=== PATIENT | female | born 1965 | race African-American/Black ===

== ENCOUNTER 2016-12-03 11:38 | Inpatient (IN) | payer OTHER ==
[2016-12-03 13:02] VITALS: BMI 36.0
--- NOTE | 2016-12-03 16:12 | HP ---
CIWA Score - CIWA Score Nausea/Vomitin Muscle Tremors: 4-Moderate,w/Arms Extend Anxiety: 4-Mod. Anxious/Guarded Agitation: 4-Moderately Restless Paroxysmal Sweats: 3 Orientation: 0-Oriented Tacttile Disturbances: 0-None Auditory Disturbances: 0-None Visual Disturbances: 0-None Headache: 0-None Present CIWA-Ar Total Score: 18 Admission ROS BHS - HPI Chief Complaint: Withdrawal sx. Allergies/Adverse Reactions: Allergies Allergy/AdvReac Type Severity Reaction Status Date / Time No Known Allergies Allergy Verified 12/03/16 14:59 History of Present Illness: 51 y/o woman with a long hx. of alcoholism is admitted for detox.Pt. denies previous detox,denies sobriety. Exam Limitations: No Limitations - Ebola screening Have you traveled outside of the country in the last 21 days: No Have you had contact with anyone from an Ebola affected area: No Have you been sick,other than usual withdrawal symptoms: No - Review of Systems Constitutional: Diaphoresis EENT: reports: No Symptoms Reported Respiratory: reports: No Symptoms reported Cardiac: reports: No Symptoms Reported GI: reports: Nausea, Abdominal cramping : reports: No Symptoms Reported Musculoskeletal: reports: Other (pain 1st toe rt. foot) Integumentary: reports: Sweating Neuro: reports: Tremors Endocrine: reports: No Symptoms Reported Hematology: reports: No Symptoms Reported Psychiatric: reports: No Sypmtoms Reported Other Systems: Reviewed and Negative Patient History - Patient Medical History Hx Anemia: No Hx Asthma: No Hx Chronic Obstructive Pulmonary Disease (COPD): No Hx Cancer: No Hx Cardiac Disorders: No Hx Congestive Heart Failure: No Hx Hypertension: No Hx Hypercholesterolemia: No Hx Pacemaker: No HX Cerebrovascular Accident: No Hx Seizures: No Hx Dementia: No Hx Diabetes: No Hx Gastrointestinal Disorders: Yes (Dyspepsia) Hx Liver Disease: No Hx Genitourinary Disorders: No Hx Sexually Transmitted Disorders: Yes (Chkamydia many years ago) Hx Renal Disease (ESRD): No Hx Thyroid Disease: No Hx Human Immunodeficiency Virus (HIV): No Hx Hepatitis C: No Hx Depression: Yes (No meds in two yrs.,does not want psych consult) Hx Suicide Attempt: No Hx Bipolar Disorder: No Hx Schizophrenia: No - Patient Surgical History Past Surgical History: Yes Hx Abdominal Surgery: No (umbilical hernia) Other Surgical History: tubal ligation - PPD History Previous Implant?: Yes Documented Results: Positive w/o proof PPD to be Administered?: No - Reproductive History Patient is a Female of Child Bearing Age (11 -55 yrs old): Yes Patient : No - Smoking Cessation Smoking history: Current every day smoker Have you smoked in the past 12 months: Yes Aproximately how many cigarettes per day: 10 Hx Chewing Tobacco Use: No Initiated information on smoking cessation: Yes 'Breaking Loose' booklet given: 12/03/16 - Substance & Tx. History Hx Alcohol Use: Yes Hx Substance Use: Yes Substance Use Type: Alcohol, Cocaine Hx Substance Use Treatment: No - Substances Abused Alcohol Route: Oral Frequency: Daily Amount used: Vodka(1gallon), Beer 1(6 pack) Age of first use: 18 Date of Last Use: 12/02/16 Crack Route: Smoking Frequency: Daily Amount used: >$500.00 Age of first use: 18 Date of Last Use: 12/02/16 Marijuana/Hashish Route: Smoking Frequency: 3-6 times per week Amount used: 1 blunt Age of first use: 14 Date of Last Use: 12/02/16 Family Disease History - Family Disease History Family Disease History: Diabetes: Mother (HTN,Alcohol), Heart Disease: Mother, Other: Mother Admission Physical Exam S - Vital Signs Vital Signs: Vital Signs - 24 hr 12/03/16 12:59 Temperature 98.2 F Pulse Rate 70 Respiratory 18 Rate Blood Pressure 133/76 - Physical General Appearance: Yes: Tremorous, Irritable, Sweating, Anxious HEENTM: Yes: Within Normal Limits Respiratory: Yes: Chest Non-Tender, Lungs Clear, Normal Breath Sounds Neck: Yes: Supple Breast: Yes: Breast Exam Deferred Cardiology: Yes: Regular Rhythm, Regular Rate, S1, S2 Abdominal: Yes: Normal Bowel Sounds, Non Tender, Soft Genitourinary: Yes: Within Normal Limits Back: Yes: Within Normal Limits Musculoskeletal: Yes: full range of Motion Extremities: Yes: Tremors, Other (swollen & tender 1st toe rt. foot) Neurological: Yes: Fully Oriented, Alert Integumentary: Yes: Diaphoresis Lymphatic: Yes: Within Normal Limits - Diagnostic (1) Alcohol dependence with uncomplicated withdrawal Current Visit: Yes Status: Acute (2) Cannabis dependence, uncomplicated Current Visit: Yes Status: Acute (3) Cocaine dependence, uncomplicated Current Visit: Yes Status: Acute BHS Breath Alcohol Content Breath Alcohol Content: 0 Urine Pregancy Test - Result Urine Test Results: Negative- NO Line Present Urine Drug Screen - Results Drug Screen Negative: No Urine Drug Screen Results: THC-Marijuana, LILO-Cocaine
[2016-12-03] MEDS ORDERED: chlordiazePOXIDE HCL 25 MG CAPSULE PO PRN (16:39)
[2016-12-03] MEDS ORDERED: MENTHOL/PHENOL 1 EACH UD MM PRN (16:39)
[2016-12-03] MEDS ORDERED: hydrOXYzine PAMOATE 50 MG CAPSULE (FP) PO PRN (16:39)
[2016-12-03] MEDS ORDERED: MAGNESIUM CITRATE 300 ML BOTTLE PO PRN (16:39)
[2016-12-03] MEDS ORDERED: ACETAMINOPHEN 325 MG TABLET (FP) PO PRN (16:39)
[2016-12-03] MEDS ORDERED: IBUPROFEN 400 MG TABLET (FP) PO PRN (16:39)
[2016-12-03] MEDS ORDERED: diphenhydrAMINE HCL 50 MG CAPSULE PO PRN (16:39)
[2016-12-03] MEDS ORDERED: P-EPHED 60MG/TRIPROLIDI 2.5MG TABLET PO PRN (16:39)
[2016-12-03] MEDS ORDERED: MAGNESIUM HYDROX 2400MG/30ML ORAL SUSPENSION 30 ML CUP PO PRN (16:39)
[2016-12-03] MEDS ORDERED: LOPERAMIDE HCL 2 MG CAPSULE PO PRN (16:39)
[2016-12-03] MEDS ORDERED: NICOTINE POLACRILEX 2 MG GUM BC PRN (16:39)
[2016-12-03] MEDS ORDERED: guaiFENesin/D-METHORPHAN HB 10 ML UNIT-DOSE CUPS PO PRN (16:39)
[2016-12-03] MEDS ORDERED: chlordiazePOXIDE HCL 25 MG CAPSULE PO ONE (17:30)
[2016-12-03] MEDS: chlordiazePOXIDE HCL 25 MG CAPSULE PO SCH ×2 (18:48→22:23)
[2016-12-03] MEDS: NICOTINE 21 MG/24 HOURS TOPICAL PATCH TD SCH (18:48)
[2016-12-03 19:50] LABS: URINE APPEARANCE CLEAR; URINE BILIRUBIN NEGATIVE (NEGATIVE); URINE COLOR LTYELLOW; URINE GLUCOSE (UA) NEGATIVE (NEGATIVE); URINE KETONE NEGATIVE (NEGATIVE); URINE LEUK ESTERASE NEGATIVE (NEGATIVE); URINE NITRITE NEGATIVE (NEGATIVE); URINE PROTEIN NEGATIVE (NEGATIVE); URINE UROBILINOGEN NEGATIVE E.U./dl (0.2-1.0)
[2016-12-03 20:10] LABS: URINE BLOOD 1+ (NEGATIVE)
[2016-12-03 20:28] LABS: URINE HYALINE CAST 1 /lpf; URINE MUCUS RARE; URINE RBC <1 /hpf (0-3); URINE WBC 1 /hpf (3-5)
[2016-12-03] MEDS: THIAMINE HCL 100 MG TABLET (FP) PO SCH (22:23)
[2016-12-04] MEDS: chlordiazePOXIDE HCL 25 MG CAPSULE PO SCH (06:16)
[2016-12-04] MEDS ORDERED: diazePAM 5 MG TABLET PO PRN (09:01)
[2016-12-04] MEDS ORDERED: diazePAM 5 MG TABLET PO ONE (09:12)
[2016-12-04] MEDS: PRENATAL VITAMINS W/ FOLIC ACID TABLET (FP) PO SCH (10:00)
[2016-12-04 10:09] LABS: MCH 29.2 pg (25.7-33.7); MCHC 32.7 g/dl (32.0-36.0); MEAN CELL VOLUME 89.3 fl (80-96); PLATELET COUNT 216 K/MM3 (134-434); RDW 14.3 % (11.6-15.6)
[2016-12-04 10:36] LABS: ALBUMIN 3.6 g/dl (3.4-5.0); ALK PHOS 71 U/L (45-117); ANION GAP 10 (8-16); BILIRUBIN,TOTAL 0.4 mg/dL (0.2-1.0); CALCIUM 9.3 mg/dL (8.5-10.1); CO2 28 mmol/L (21-32); CREATININE 0.9 mg/dL (0.55-1.02); GLUCOSE,RANDOM 104 mg/dL (74-106); SGOT/AST 21 U/L (15-37); SGPT/ALT 31 U/L (12-78)
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
[2016-12-04] MEDS: NICOTINE 21 MG/24 HOURS TOPICAL PATCH TD SCH (11:07)
[2016-12-04] MEDS: RANITIDINE HCL 150 MG TABLET (FP) PO SCH ×2 (11:07→22:18)
[2016-12-04 13:50] LABS: URINE APPEARANCE CLEAR; URINE BILIRUBIN NEGATIVE (NEGATIVE); URINE BLOOD NEGATIVE (NEGATIVE); URINE COLOR STRAW; URINE GLUCOSE (UA) NEGATIVE (NEGATIVE); URINE KETONE NEGATIVE (NEGATIVE); URINE LEUK ESTERASE NEGATIVE (NEGATIVE); URINE NITRITE NEGATIVE (NEGATIVE); URINE PROTEIN NEGATIVE (NEGATIVE); URINE UROBILINOGEN NEGATIVE E.U./dl (0.2-1.0)
[2016-12-04] MEDS: diazePAM 5 MG TABLET PO SCH ×2 (14:31→22:18)
--- NOTE | 2016-12-04 15:45 | CONSULT ---
[facility] Psychiatric Consult - Data Date of interview: 12/04/16 Admission source: [facility] Identifying data: This is 51 years old female with psychiatric hospitalization history intoxicated with: Aslcohol, Crack, Cannabis Substance Abuse History: - Smoking Cessation. Smoking history: Current every day smoker. Have you smoked in the past 12 months: Yes. Aproximately how many cigarettes per day: 10. Hx Chewing Tobacco Use: No. Initiated information on smoking cessation: Yes. 'Breaking Loose' booklet given: 12/03/16. - Substance & Tx. History. Hx Alcohol Use: Yes. Hx Substance Use: Yes. Substance Use Type : Alcohol, Cocaine. Hx Substance Use Treatment: No. - Substances Abused. Alcohol. Route: Oral. Frequency: Daily. Amount used: Vodka(1gallon), Beer 1( 6 pack). Age of first use: 18. Date of Last Use: 12/02/16. Crack. Route: Smoking. Frequency: Daily. Amount used: >$500.00. Age of first use: 18. Date of Last Use: 12/02/16. Marijuana/Hashish. Route: Smoking. Frequency: 3-6 times per week. Amount used: 1 blunt. Age of first use: 14. Date of Last Use: 12/02/16 Medical History: Denies any significant medical problem Psychiatric History: Denies, reports unclear psychiatric admission on more then 5 years ago for safety Physical/Sexual Abuse/Trauma History: Denies Additional Comment: Observation. Detox Unit Care Protocol Mental Status Exam - Mental Status Exam Alert and Oriented to: Person Cognitive Function: Fair Patient Appearance: Unkempt Mood: Suspicious, Anxious Affect: Labile Patient Behavior: Guarded Speech Pattern: Appropriate Voice Loudness: Mildly Loud Thought Process: Goal Oriented Thought Disorder: Being Controlled Hallucinations: Denies Suicidal Ideation: Denies Homicidal Ideation: Denies Insight/Judgement: Fair Sleep: Difficulty falling asleep Appetite: Weight gain Muscle strength/Tone: Normal Gait/Station: Normal Additional Comments: Observation. Detox Unit Care Protocol Psychiatric Findings - Problem List ([place] 1, 2,3) (1) Alcohol dependence with uncomplicated withdrawal Current Visit: Yes Status: Acute (2) Cannabis dependence, uncomplicated Current Visit: Yes Status: Acute (3) Cocaine dependence, uncomplicated Current Visit: Yes Status: Acute (4) Drug-induced mood disorder Current Visit: Yes Status: Suspected - Initial Treatment Plan Initial Treatment Plan: Observation. Detox Unit Care Protocol
--- NOTE | 2016-12-04 16:36 | EKG ---
Test Reason : Blood Pressure : / mmHG Vent. Rate : 074 BPM Atrial Rate : 074 BPM P-R Int : 140 ms QRS Dur : 084 ms QT Int : 398 ms P-R-T Axes : 050 068 056 degrees QTc Int : 441 ms NORMAL SINUS RHYTHM VOLTAGE CRITERIA FOR LEFT VENTRICULAR HYPERTROPHY ABNORMAL ECG NO PREVIOUS ECGS AVAILABLE Confirmed by MIRELLA JEFFERSON MD ([id number]) on 12/04/2016 4:36:07 PM Referred By: Confirmed By:MIRELLA JEFFERSON MD
[2016-12-04] MEDS ORDERED: chlordiazePOXIDE HCL 25 MG CAPSULE PO SCH (17:00)
[2016-12-04] MEDS: THIAMINE HCL 100 MG TABLET (FP) PO SCH (22:18)
[2016-12-05] MEDS: MAG HYDROX/AL HYDROX/SIMETH 30 ML UNIT-DOSE CUP PO PRN ×2 (04:27→20:18)
[2016-12-05] MEDS: diazePAM 5 MG TABLET PO SCH ×3 (05:40→22:14)
--- NOTE | 2016-12-05 09:58 | PN ---
S CIWA - CIWA Score Nausea/Vomitin Muscle Tremors: 3 Anxiety: 2 Agitation: 2 Paroxysmal Sweats: 1-Minimal Palms Moist Orientation: 0-Oriented Tacttile Disturbances: 1-Very Mild Itch/Numbness Auditory Disturbances: 1-Very Mild Visual Disturbances: 1-Very Mild Sensitivity Headache: 2-Mild CIWA-Ar Total Score: 16 S Progress Note (SOAP) Subjective: ALERT,IRRITABLE,ANXIOUS,INTERRUPTED SLEEP,PAIN IN THE RIGHT BIG TOE IS LESS Objective: 12/05/16 10:20 Vital Signs Temperature 98.2 F 12/05/16 09:54 Pulse Rate 74 12/05/16 09:54 Respiratory Rate 16 12/05/16 09:54 Blood Pressure 131/71 12/05/16 09:54 O2 Sat by Pulse Oximetry (%) Laboratory Last Values WBC 6.0 K/mm3 (4.0-10.0) 12/04/16 06:00 RBC 4.67 M/mm3 (3.60-5.2) 12/04/16 06:00 Hgb 13.6 GM/dL (10.7-15.3) 12/04/16 06:00 Hct 41.7 % (32.4-45.2) 12/04/16 06:00 MCV 89.3 fl (80-96) 12/04/16 06:00 MCHC 32.7 g/dl (32.0-36.0) 12/04/16 06:00 RDW 14.3 % (11.6-15.6) 12/04/16 06:00 Plt Count 216 K/MM3 (134-434) 12/04/16 06:00 MPV 11.0 fl (7.5-11.1) 12/04/16 06:00 Sodium 143 mmol/L (136-145) 12/04/16 06:00 Potassium 3.8 mmol/L (3.5-5.1) 12/04/16 06:00 Chloride 105 mmol/L (98-107) 12/04/16 06:00 Carbon Dioxide 28 mmol/L (21-32) 12/04/16 06:00 Anion Gap 10 (8-16) 12/04/16 06:00 BUN 7 mg/dL (7-18) 12/04/16 06:00 Creatinine 0.9 mg/dL (0.55-1.02) 12/04/16 06:00 Creat Clearance w eGFR > 60 (>60) 12/04/16 06:00 Random Glucose 104 mg/dL (74-106) 12/04/16 06:00 Calcium 9.3 mg/dL (8.5-10.1) 12/04/16 06:00 Total Bilirubin 0.4 mg/dL (0.2-1.0) 12/04/16 06:00 AST 21 U/L (15-37) 12/04/16 06:00 ALT 31 U/L (12-78) 12/04/16 06:00 Alkaline Phosphatase 71 U/L (45-117) 12/04/16 06:00 Total Protein 7.0 g/dl (6.4-8.2) 12/04/16 06:00 Albumin 3.6 g/dl (3.4-5.0) 12/04/16 06:00 Urine Color Straw 12/04/16 11:45 Urine Appearance Clear 12/04/16 11:45 Urine pH 7.0 (5.0-8.0) 12/04/16 11:45 Ur Specific [place] 1.015 (1.005-1.025) 12/04/16 11:45 Urine Protein Negative (NEGATIVE) 12/04/16 11:45 Urine Glucose (UA) Negative (NEGATIVE) 12/04/16 11:45 Urine Ketones Negative (NEGATIVE) 12/04/16 11:45 Urine Blood Negative (NEGATIVE) 12/04/16 11:45 Urine Nitrite Negative (NEGATIVE) 12/04/16 11:45 Urine Bilirubin Negative (NEGATIVE) 12/04/16 11:45 Urine Urobilinogen Negative E.U./dl (0.2-1.0) 12/04/16 11:45 Ur Leukocyte Esterase Negative (NEGATIVE) 12/04/16 11:45 Urine RBC <1 /hpf (0-3) 12/03/16 14:00 Urine WBC 1 /hpf (3-5) 12/03/16 14:00 Ur Epithelial Cells Rare /hpf (FEW) 12/03/16 14:00 Hyaline Casts 1 /lpf 12/03/16 14:00 Urine Mucus Rare 12/03/16 14:00 RPR Titer Nonreactive (NONREACTIVE) 12/04/16 06:00 CHEST X RAY ON 12/04/16 UNREMARKABLE X RAY OF RIGHT FOOT POSSIBLE LINEAR FX OF PROXIMAL PHALANX OF RIGHT BIG TOE 12/05/16 10:24 Assessment: 12/05/16 10:23 12/05/16 10:24 WITHDRAWAL SYMPTOM 12/05/16 10:24 CONTINUE DETOX, POST OP SHOES RIGHT FOOT PATIENT WILL FOLLOW UP WITH HER PRIMARY CARE PHYSICIAN AND ORTHOPEDIST OR [facility] PROGRAMMER AFTER DISCHARGE 12/05/16 10:27 Plan: CONTINUE DETOX
[2016-12-05] MEDS: RANITIDINE HCL 150 MG TABLET (FP) PO SCH ×2 (10:18→22:14)
[2016-12-05] MEDS: PRENATAL VITAMINS W/ FOLIC ACID TABLET (FP) PO SCH (10:18)
[2016-12-05] MEDS: NICOTINE 21 MG/24 HOURS TOPICAL PATCH TD SCH (10:18)
[2016-12-05] MEDS ORDERED: chlordiazePOXIDE 5 MG CAPSULE PO SCH (17:00)
[2016-12-05] MEDS: THIAMINE HCL 100 MG TABLET (FP) PO SCH (22:14)
[2016-12-06] MEDS: RANITIDINE HCL 150 MG TABLET (FP) PO SCH ×2 (10:32→22:06)
[2016-12-06] MEDS: PRENATAL VITAMINS W/ FOLIC ACID TABLET (FP) PO SCH (10:32)
[2016-12-06] MEDS: NICOTINE 21 MG/24 HOURS TOPICAL PATCH TD SCH (10:32)
[2016-12-06] MEDS: diazePAM 5 MG TABLET PO SCH ×2 (10:33→22:06)
--- NOTE | 2016-12-06 14:38 | PN ---
BHS Progress Note (SOAP) Subjective: Sweating,interrupted sleep,restless Objective: 12/06/16 14:36 Vital Signs - 8 hr 12/06/16 12/06/16 10:00 14:12 Temperature 98.6 F 98.1 F Pulse Rate 65 68 Respiratory 18 18 Rate Blood Pressure 140/81 117/55 Laboratory Tests 12/03/16 12/04/16 12/04/16 14:00 06:00 06:00 WBC 6.0 RBC 4.67 Hgb 13.6 Hct 41.7 MCV 89.3 MCHC 32.7 RDW 14.3 Plt Count 216 MPV 11.0 Sodium 143 Potassium 3.8 Chloride 105 Carbon Dioxide 28 Anion Gap 10 BUN 7 Creatinine 0.9 Creat Clearance w eGFR > 60 Random Glucose 104 Calcium 9.3 Total Bilirubin 0.4 AST 21 ALT 31 Alkaline Phosphatase 71 Total Protein 7.0 Albumin 3.6 Urine Color Ltyellow Urine Appearance Clear Urine pH 7.0 Ur Specific [place] 1.015 Urine Protein Negative Urine Glucose (UA) Negative Urine Ketones Negative Urine Blood 1+ H Urine Nitrite Negative Urine Bilirubin Negative Urine Urobilinogen Negative Ur Leukocyte Esterase Negative Urine RBC <1 Urine WBC 1 Ur Epithelial Cells Rare Hyaline Casts 1 Urine Mucus Rare RPR Titer 12/04/16 12/04/16 06:00 11:45 WBC RBC Hgb Hct MCV MCHC RDW Plt Count MPV Sodium Potassium Chloride Carbon Dioxide Anion Gap BUN Creatinine Creat Clearance w eGFR Random Glucose Calcium Total Bilirubin AST ALT Alkaline Phosphatase Total Protein Albumin Urine Color Straw Urine Appearance Clear Urine pH 7.0 Ur Specific [place] 1.015 Urine Protein Negative Urine Glucose (UA) Negative Urine Ketones Negative Urine Blood Negative Urine Nitrite Negative Urine Bilirubin Negative Urine Urobilinogen Negative Ur Leukocyte Esterase Negative Urine RBC Urine WBC Ur Epithelial Cells Hyaline Casts Urine Mucus RPR Titer Nonreactive labs noted Assessment: 12/06/16 14:37 Withdrawal sx. Plan: Continue detox
[2016-12-06] MEDS ORDERED: chlordiazePOXIDE HCL 10 MG CAPSULE PO SCH (17:00)
--- NOTE | 2016-12-06 19:24 | EKG ---
Test Reason : Blood Pressure : / mmHG Vent. Rate : 060 BPM Atrial Rate : 060 BPM P-R Int : 146 ms QRS Dur : 088 ms QT Int : 416 ms P-R-T Axes : 051 051 037 degrees QTc Int : 416 ms NORMAL SINUS RHYTHM NORMAL ECG WHEN COMPARED WITH ECG OF 03-DEC-2016 17:12, NONSPECIFIC T WAVE ABNORMALITY NO LONGER EVIDENT IN ANTERIOR LEADS Confirmed by QUIANA WILKERSON MD ([id number]) on 12/06/2016 7:23:51 PM Referred By: Confirmed By:QUIANA WILKERSON MD
[2016-12-06] MEDS: THIAMINE HCL 100 MG TABLET (FP) PO SCH (22:05)
[2016-12-07] MEDS: PRENATAL VITAMINS W/ FOLIC ACID TABLET (FP) PO SCH (10:14)
[2016-12-07] MEDS: RANITIDINE HCL 150 MG TABLET (FP) PO SCH ×2 (10:14→22:18)
[2016-12-07] MEDS: NICOTINE 21 MG/24 HOURS TOPICAL PATCH TD SCH (10:14)
[2016-12-07] MEDS: diazePAM 5 MG TABLET PO SCH ×2 (10:15→22:18)
--- NOTE | 2016-12-07 11:10 | PN ---
BHS Progress Note (SOAP) Subjective: Sweating,interrupted sleep,restless Objective: 12/07/16 11:09 Vital Signs - 8 hr 12/07/16 12/07/16 12/07/16 03:30 06:00 09:45 Temperature 98.1 F 98.2 F Pulse Rate 68 87 Respiratory 18 18 18 Rate Blood Pressure 102/52 127/65 Laboratory Tests 12/03/16 12/04/16 12/04/16 14:00 06:00 06:00 WBC 6.0 RBC 4.67 Hgb 13.6 Hct 41.7 MCV 89.3 MCHC 32.7 RDW 14.3 Plt Count 216 MPV 11.0 Sodium 143 Potassium 3.8 Chloride 105 Carbon Dioxide 28 Anion Gap 10 BUN 7 Creatinine 0.9 Creat Clearance w eGFR > 60 Random Glucose 104 Calcium 9.3 Total Bilirubin 0.4 AST 21 ALT 31 Alkaline Phosphatase 71 Total Protein 7.0 Albumin 3.6 Urine Color Ltyellow Urine Appearance Clear Urine pH 7.0 Ur Specific [place] 1.015 Urine Protein Negative Urine Glucose (UA) Negative Urine Ketones Negative Urine Blood 1+ H Urine Nitrite Negative Urine Bilirubin Negative Urine Urobilinogen Negative Ur Leukocyte Esterase Negative Urine RBC <1 Urine WBC 1 Ur Epithelial Cells Rare Hyaline Casts 1 Urine Mucus Rare RPR Titer 12/04/16 12/04/16 06:00 11:45 WBC RBC Hgb Hct MCV MCHC RDW Plt Count MPV Sodium Potassium Chloride Carbon Dioxide Anion Gap BUN Creatinine Creat Clearance w eGFR Random Glucose Calcium Total Bilirubin AST ALT Alkaline Phosphatase Total Protein Albumin Urine Color Straw Urine Appearance Clear Urine pH 7.0 Ur Specific [place] 1.015 Urine Protein Negative Urine Glucose (UA) Negative Urine Ketones Negative Urine Blood Negative Urine Nitrite Negative Urine Bilirubin Negative Urine Urobilinogen Negative Ur Leukocyte Esterase Negative Urine RBC Urine WBC Ur Epithelial Cells Hyaline Casts Urine Mucus RPR Titer Nonreactive labs noted Assessment: 12/07/16 11:10 Withdrawal sx. Plan: Continue detox
--- NOTE | 2016-12-07 14:49 | PN ---
BHS Progress Note Note: Pt. c/o chest pain while lying down in bed.When she gets up the pain is gone.Pt. has hx. of GERD on Zantac 150mg BID. Vital Signs - 8 hr 12/07/16 12/07/16 12/07/16 09:45 14:10 14:11 Temperature 98.2 F 97.9 F 97.9 F Pulse Rate 87 74 74 Respiratory 18 18 18 Rate Blood Pressure 127/65 134/68 134/68 Stat EKG is unchanged from previous EKG on 12/04 & 12/05 Lungs : clear Heart : RR, no murmur Dx. : Dyspepsia(heart burn) related to GERD P : protonix 40mg daily
[2016-12-07] MEDS: PANTOPRAZOLE 40 MG TABLET (FP) PO SCH (16:10)
[2016-12-07] MEDS: THIAMINE HCL 100 MG TABLET (FP) PO SCH (22:19)
--- NOTE | 2016-12-08 08:09 | PN ---
S Progress Note (SOAP) Subjective: ALERT,NO COMPLAINT Objective: 12/08/16 08:07 Vital Signs Temperature 98.3 F 12/08/16 06:33 Pulse Rate 65 12/08/16 06:33 Respiratory Rate 16 12/08/16 06:33 Blood Pressure 102/50 12/08/16 06:33 O2 Sat by Pulse Oximetry (%) Assessment: 12/08/16 08:08 DETOX COMPLETED,NO WITHDRAWAL SYMPTOM Plan: DISCHARGE TO DAY,FOLLOW UP WITH AFTER CARE PROGRAM ARRANGEMENT
--- NOTE | 2016-12-08 08:14 | DS ---
[facility] Detox Discharge Summary Admission Date: 12/03/16 Discharge Date: 12/08/16 - History Present History: Alcohol Dependence, Cannabis Dependence, Cocaine Dependence Additional Comments: FOLLOW UP WITH AFTER CARE PROGRAM ARRANGEMENT [facility] - Physical Exam Results Vital Signs: Vital Signs Temperature 98.3 F 12/08/16 06:33 Pulse Rate 65 12/08/16 06:33 Respiratory Rate 16 12/08/16 06:33 Blood Pressure 102/50 12/08/16 06:33 O2 Sat by Pulse Oximetry (%) Pertinent Admission Physical Exam Findings: WITHDRAWAL SYMPTOM - Treatment Hospital Course: Detox Protocol Followed, Detoxed Safely, Responded well, Discharged Condition Good, Rehab Referral Accepted Patient has Accepted a Rehab Referral to: [facility] - Medication Discharge Medications: Ambulatory Orders NK [No Known Home Medication] 12/03/16 - Diagnosis (1) Alcohol dependence with uncomplicated withdrawal Current Visit: Yes Status: Acute (2) Cannabis dependence, uncomplicated Current Visit: Yes Status: Acute (3) Cocaine dependence, uncomplicated Current Visit: Yes Status: Acute (4) Drug-induced mood disorder Current Visit: Yes Status: Suspected (5) Toe fracture, right Current Visit: Yes Status: Acute - AMA Did Patient Leave Against Medical Advice: No
[2016-12-08] MEDS ORDERED: diazePAM 5 MG TABLET PO SCH (10:00)
[2016-12-08] MEDS: PRENATAL VITAMINS W/ FOLIC ACID TABLET (FP) PO SCH (10:18)
[2016-12-08] MEDS: NICOTINE 21 MG/24 HOURS TOPICAL PATCH TD SCH (10:18)
[2016-12-08] MEDS: PANTOPRAZOLE 40 MG TABLET (FP) PO SCH (10:18)
[2016-12-08] MEDS: RANITIDINE HCL 150 MG TABLET (FP) PO SCH (10:20)
[2016-12-08 14:17] VITALS: BP 123/66; PULSE 81; TEMP 97.9
--- NOTE | 2016-12-08 16:15 | EKG ---
Test Reason : Blood Pressure : / mmHG Vent. Rate : 071 BPM Atrial Rate : 071 BPM P-R Int : 152 ms QRS Dur : 084 ms QT Int : 380 ms P-R-T Axes : 048 059 046 degrees QTc Int : 412 ms NORMAL SINUS RHYTHM MODERATE VOLTAGE CRITERIA FOR LVH, MAY BE NORMAL VARIANT BORDERLINE ECG WHEN COMPARED WITH ECG OF 05-DEC-2016 04:05, NO SIGNIFICANT CHANGE WAS FOUND Confirmed by FERDINAND MCKEON MD ([id number]) on 12/08/2016 4:14:35 PM Referred By: Confirmed By:FERDINAND MCKEON MD
== END 2016-12-08 17:45 | disposition other institution (70) | DRG 774 ==
LOC: YASAS 11:38 → Y6N 15:21
PROVIDERS: ADMIT Internal Medicine Addiction Medicine; ATTEND Internal Medicine Addiction Medicine
PROC: HZ2ZZZZ Detoxification Services for Substance Abuse Treatment (ICD-10-PCS; principal; 2016-12-08)
DX: F10.230 Alcohol dependence with withdrawal, uncomplicated (principal); F14.20 Cocaine dependence, uncomplicated; F12.20 Cannabis dependence, uncomplicated; F19.24 Other psychoactive substance dependence with psychoactive substance-induced mood disorder; F32.9 Major depressive disorder, single episode, unspecified; K21.9 Gastro-esophageal reflux disease without esophagitis; S92.404A Nondisplaced unspecified fracture of right great toe, initial encounter for closed fracture; X58.XXXA Exposure to other specified factors, initial encounter; Y93.9 Activity, unspecified
CPT/HCPCS: 36415; 71020-TC; 73630-TC-RT; 80053; 81003; 81015; 85027; 86593; 93005; 93010

== ENCOUNTER 2016-12-08 18:01 | Inpatient (IN) | payer OTHER ==
[2016-12-08 19:28] VITALS: BMI 36.0
[2016-12-08] MEDS ORDERED: P-EPHED 60MG/TRIPROLIDI 2.5MG TABLET PO PRN (20:02)
[2016-12-08] MEDS ORDERED: NICOTINE POLACRILEX 2 MG GUM BUC PRN (20:02)
[2016-12-08] MEDS ORDERED: ACETAMINOPHEN 325 MG TABLET (FP) PO PRN (20:02)
[2016-12-08] MEDS ORDERED: guaiFENesin/D-METHORPHAN HB 10 ML UNIT-DOSE CUPS PO PRN (20:02)
[2016-12-08] MEDS ORDERED: MAGNESIUM HYDROX 2400MG/30ML ORAL SUSPENSION 30 ML CUP PO PRN (20:02)
[2016-12-08] MEDS ORDERED: LOPERAMIDE HCL 2 MG CAPSULE PO PRN (20:02)
[2016-12-08] MEDS ORDERED: MAGNESIUM CITRATE 300 ML BOTTLE PO PRN (20:02)
[2016-12-08] MEDS ORDERED: MENTHOL/PHENOL 1 EACH UD MM PRN (20:02)
[2016-12-08] MEDS ORDERED: NICOTINE 14 MG/24 HOURS TOPICAL PATCH TD PRN (20:02)
--- NOTE | 2016-12-08 20:02 | HP ---
[facility] Rehab Assess/Revision - Admission History Admitted to Rehab from: [facility] Date of Admission to Rehab: 12/08/16 - Vital signs Vital Signs: Vital Signs Period Temp Pulse Resp BP Sys/Capellan Pulse Ox Last 24 Hr 98 F 68 18 102/60 - Findings Detox History & Physical reviewed: Yes Concur with findings: Yes Comments/Additional Findings: TRANSFERRED FROM DETOX TO REHAB ADMISSION PER PROTOCOL
[2016-12-08] MEDS: THIAMINE HCL 100 MG TABLET (FP) PO SCH (21:27)
[2016-12-08] MEDS: RANITIDINE HCL 150 MG TABLET (FP) PO SCH (21:27)
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
[2016-12-09] MEDS: PRENATAL VITAMINS W/ FOLIC ACID TABLET (FP) PO SCH (10:06)
[2016-12-09] MEDS: RANITIDINE HCL 150 MG TABLET (FP) PO SCH ×2 (10:06→21:19)
[2016-12-09 11:25] LABS: HIV 1 & 2 AB NEGATIVE; HIV 1 AGp24 NEGATIVE
[2016-12-09] MEDS ORDERED: IBUPROFEN 400 MG TABLET (FP) PO ONE (16:30)
[2016-12-09] MEDS: THIAMINE HCL 100 MG TABLET (FP) PO SCH (21:19)
[2016-12-09] MEDS: IBUPROFEN 400 MG TABLET (FP) PO SCH (21:19)
[2016-12-09] MEDS ORDERED: traZODone HCL 50 MG TABLET (FP) PO SCH (22:00)
[2016-12-10] MEDS: RANITIDINE HCL 150 MG TABLET (FP) PO SCH ×2 (10:17→21:05)
[2016-12-10] MEDS: PRENATAL VITAMINS W/ FOLIC ACID TABLET (FP) PO SCH (10:17)
[2016-12-10] MEDS: IBUPROFEN 400 MG TABLET (FP) PO SCH ×2 (10:17→21:05)
--- NOTE | 2016-12-10 13:36 | PN ---
Psychiatric Progress Note Vital Signs: Vital Signs Period Temp Pulse Resp BP Sys/Capellan Pulse Ox Last 24 Hr 98.4 F 57 18-18 143/84 Date of Session: 12/10/16 Chief Complaint:: Insomnia HPI: Patient addressing Alcohol, Cocaine and Cannabis Dependence comorbid with Nicotine Dependence, Depressive Disorder, Substance-Induced Anxiety Disorder and Substance-Induced Sleep Disorder Current Medications: Active Medications Generic Name Dose Route Start Last Admin Trade Name Freq PRN Reason Stop Dose Admin Acetaminophen 650 mg 12/08/16 20:02 Tylenol - PO Q4H PRN FEVER OR PAIN Al Hydroxide/Mg Hydroxide 30 ml 12/08/16 20:02 Mylanta Oral Suspension - PO Q6H PRN DYSPEPSIA Diphenhydramine HCl 50 mg 12/08/16 20:02 Benadryl - PO HSMR1 PRN FOR ITCHING Eucalyptus/Menthol/Phenol/Sorbitol 1 each 12/08/16 20:02 Cepastat Lozenge - MM Q4H PRN SORE THROAT Guaifenesin 10 ml 12/08/16 20:02 Robitussin Dm - PO Q6H PRN COUGH Ibuprofen 800 mg 12/09/16 22:00 12/10/16 10:17 Motrin - PO Not Given BID BERTHA Loperamide HCl 4 mg 12/08/16 20:02 Imodium - PO Q6H PRN DIARRHEA Magnesium Citrate 300 ml 12/08/16 20:02 Citroma - PO 12/10/16 20:03 Q48H PRN CONSTIPATION Magnesium Hydroxide 30 ml 12/08/16 20:02 Milk Of Magnesia - PO DAILY PRN CONSTIPATION Nicotine 14 mg 12/08/16 20:02 12/09/16 10:06 Nicoderm Patch - TD 14 mg DAILY PRN Administration WITHDRAWAL(CONT SUBST) Nicotine Polacrilex 2 mg 12/08/16 20:02 Nicorette Gum - BUC Q2H PRN NICOTINE REPLACEMENT RX Multivit/Folic Acid/Iron 1 tab 12/09/16 10:00 12/10/16 10:17 Vitamins (Sjr) - PO 1 tab DAILY BERTHA Administration Pseudoephedrine/Triprolidine 1 combo 12/08/16 20:02 Actifed - PO TID PRN NASAL CONGESTION Ranitidine HCl 150 mg 12/08/16 22:00 06/07/17 10:17 Zantac - PO 150 mg BID BERTHA Administration Thiamine HCl 100 mg 12/08/16 22:00 12/09/16 21:19 Vitamin B1 - PO 100 mg HS BERTHA Administration Medication(s) Change(s): Increase Trazadone dosage to 100 mg po HS for insomnia Current Side Effect: No Lab tests ordered: Yes Lab tests reviewed: Yes Provider note:: Patient reports experiencing difficulty to difficulty to sleep.Told typewriter operator automatic that he has been sleeping poorly despite taking Trazadone 50 mg last night. Requests to increase dosage of Trazadone to 100 mg Total face to face time:: 25 Mental Status Exam - Mental Status Exam Alert and Oriented to: Time, Place, Person Cognitive Function: Fair Patient Appearance: Well Groomed Mood: Hopeful, Euthymic Patient Behavior: Cooperative Speech Pattern: Clear Voice Loudness: Normal Thought Process: Intact, Goal Oriented Thought Disorder: Not Present Hallucinations: Denies Suicidal Ideation: Denies Homicidal Ideation: Denies Insight/Judgement: Fair Sleep: Poorly Appetite: Good Muscle strength/Tone: Normal Gait/Station: Normal Psychiatric Treatment Plan - Problem List (1) Alcohol dependence with uncomplicated withdrawal Current Visit: No (2) Cocaine dependence, uncomplicated Current Visit: No (3) Cannabis dependence, uncomplicated Current Visit: No (4) Nicotine dependence Current Visit: Yes (5) Depressive disorder Current Visit: Yes (6) Substance-induced anxiety disorder Current Visit: Yes (7) Substance-induced sleep disorder Current Visit: Yes (8) Toe fracture, right Current Visit: No (9) GERD (gastroesophageal reflux disease) Current Visit: Yes (10) PPD positive, treated Current Visit: Yes Initial treatment plan: 1) Discontinue Trazadone 50 mg po HS. 2) Start Trazadone 100 mg po HS for insomnia
[2016-12-10] MEDS: THIAMINE HCL 100 MG TABLET (FP) PO SCH (21:03)
[2016-12-10] MEDS: traZODone HCL 100 MG TABLET (FP) PO SCH (21:03)
[2016-12-11] MEDS: PRENATAL VITAMINS W/ FOLIC ACID TABLET (FP) PO SCH (10:15)
[2016-12-11] MEDS: RANITIDINE HCL 150 MG TABLET (FP) PO SCH ×2 (10:16→21:03)
[2016-12-11] MEDS: IBUPROFEN 400 MG TABLET (FP) PO SCH ×2 (10:16→21:03)
[2016-12-11] MEDS: traZODone HCL 100 MG TABLET (FP) PO SCH (21:03)
[2016-12-11] MEDS: THIAMINE HCL 100 MG TABLET (FP) PO SCH (21:05)
[2016-12-12] MEDS: PRENATAL VITAMINS W/ FOLIC ACID TABLET (FP) PO SCH (10:23)
[2016-12-12] MEDS: RANITIDINE HCL 150 MG TABLET (FP) PO SCH ×2 (10:23→21:02)
[2016-12-12] MEDS: IBUPROFEN 400 MG TABLET (FP) PO SCH ×2 (10:24→21:03)
[2016-12-12] MEDS: traZODone HCL 100 MG TABLET (FP) PO SCH (21:02)
[2016-12-12] MEDS: THIAMINE HCL 100 MG TABLET (FP) PO SCH (21:02)
[2016-12-13] MEDS: PRENATAL VITAMINS W/ FOLIC ACID TABLET (FP) PO SCH (10:08)
[2016-12-13] MEDS: RANITIDINE HCL 150 MG TABLET (FP) PO SCH ×2 (10:08→21:12)
[2016-12-13] MEDS: IBUPROFEN 400 MG TABLET (FP) PO SCH ×2 (10:09→21:12)
[2016-12-13] MEDS: THIAMINE HCL 100 MG TABLET (FP) PO SCH (21:12)
[2016-12-13] MEDS: traZODone HCL 100 MG TABLET (FP) PO SCH (21:12)
[2016-12-13] MEDS: diphenhydrAMINE HCL 50 MG CAPSULE PO PRN (23:53)
[2016-12-14] MEDS: IBUPROFEN 400 MG TABLET (FP) PO SCH ×2 (10:25→21:13)
[2016-12-14] MEDS: RANITIDINE HCL 150 MG TABLET (FP) PO SCH ×2 (10:25→21:13)
[2016-12-14] MEDS: PRENATAL VITAMINS W/ FOLIC ACID TABLET (FP) PO SCH (10:25)
[2016-12-14] MEDS: diphenhydrAMINE HCL 50 MG CAPSULE PO PRN (21:13)
[2016-12-14] MEDS: THIAMINE HCL 100 MG TABLET (FP) PO SCH (21:13)
[2016-12-14] MEDS: traZODone HCL 100 MG TABLET (FP) PO SCH (21:13)
[2016-12-15] MEDS: PRENATAL VITAMINS W/ FOLIC ACID TABLET (FP) PO SCH (09:59)
[2016-12-15] MEDS: RANITIDINE HCL 150 MG TABLET (FP) PO SCH ×2 (09:59→21:12)
[2016-12-15] MEDS: IBUPROFEN 400 MG TABLET (FP) PO SCH ×2 (10:00→21:12)
--- NOTE | 2016-12-15 12:32 | PN ---
[facility] Progress Note Note: patient having pain in the right big toe,history of fx will obtain post op shoe
[2016-12-15] MEDS: diphenhydrAMINE HCL 50 MG CAPSULE PO PRN (21:12)
[2016-12-15] MEDS: THIAMINE HCL 100 MG TABLET (FP) PO SCH (21:12)
[2016-12-15] MEDS: traZODone HCL 100 MG TABLET (FP) PO SCH (21:12)
[2016-12-16] MEDS: IBUPROFEN 400 MG TABLET (FP) PO SCH ×3 (10:10→21:09)
[2016-12-16] MEDS: PRENATAL VITAMINS W/ FOLIC ACID TABLET (FP) PO SCH ×2 (10:10→11:12)
[2016-12-16] MEDS: RANITIDINE HCL 150 MG TABLET (FP) PO SCH ×3 (10:10→21:10)
[2016-12-16] MEDS: THIAMINE HCL 100 MG TABLET (FP) PO SCH (21:10)
[2016-12-16] MEDS: traZODone HCL 100 MG TABLET (FP) PO SCH (21:10)
[2016-12-16] MEDS: diphenhydrAMINE HCL 50 MG CAPSULE PO PRN (21:11)
[2016-12-17] MEDS: PRENATAL VITAMINS W/ FOLIC ACID TABLET (FP) PO SCH (09:51)
[2016-12-17] MEDS: IBUPROFEN 400 MG TABLET (FP) PO SCH ×2 (09:51→21:09)
[2016-12-17] MEDS: RANITIDINE HCL 150 MG TABLET (FP) PO SCH ×2 (09:52→21:08)
[2016-12-17] MEDS: diphenhydrAMINE HCL 50 MG CAPSULE PO PRN (21:08)
[2016-12-17] MEDS: traZODone HCL 100 MG TABLET (FP) PO SCH (21:08)
[2016-12-17] MEDS: THIAMINE HCL 100 MG TABLET (FP) PO SCH (21:08)
[2016-12-18] MEDS: PRENATAL VITAMINS W/ FOLIC ACID TABLET (FP) PO SCH (09:32)
[2016-12-18] MEDS: IBUPROFEN 400 MG TABLET (FP) PO SCH ×2 (09:32→21:39)
[2016-12-18] MEDS: RANITIDINE HCL 150 MG TABLET (FP) PO SCH ×2 (09:33→21:39)
[2016-12-18] MEDS: THIAMINE HCL 100 MG TABLET (FP) PO SCH (21:38)
[2016-12-18] MEDS: traZODone HCL 100 MG TABLET (FP) PO SCH (21:38)
[2016-12-18] MEDS: diphenhydrAMINE HCL 50 MG CAPSULE PO PRN (21:38)
[2016-12-19] MEDS: MAG HYDROX/AL HYDROX/SIMETH 30 ML UNIT-DOSE CUP PO PRN ×2 (02:52→09:56)
[2016-12-19] MEDS: PRENATAL VITAMINS W/ FOLIC ACID TABLET (FP) PO SCH (09:55)
[2016-12-19] MEDS: IBUPROFEN 400 MG TABLET (FP) PO SCH ×2 (09:55→21:29)
[2016-12-19] MEDS: RANITIDINE HCL 150 MG TABLET (FP) PO SCH ×2 (09:55→21:29)
[2016-12-19] MEDS: traZODone HCL 100 MG TABLET (FP) PO SCH (21:28)
[2016-12-19] MEDS: diphenhydrAMINE HCL 50 MG CAPSULE PO PRN (21:28)
[2016-12-19] MEDS: THIAMINE HCL 100 MG TABLET (FP) PO SCH (21:28)
[2016-12-20] MEDS: diphenhydrAMINE HCL 50 MG CAPSULE PO PRN ×2 (00:30→21:34)
[2016-12-20] MEDS: MAG HYDROX/AL HYDROX/SIMETH 30 ML UNIT-DOSE CUP PO PRN (00:30)
[2016-12-20] MEDS: RANITIDINE HCL 150 MG TABLET (FP) PO SCH ×2 (10:24→21:33)
[2016-12-20] MEDS: PRENATAL VITAMINS W/ FOLIC ACID TABLET (FP) PO SCH (10:25)
[2016-12-20] MEDS: IBUPROFEN 400 MG TABLET (FP) PO SCH ×2 (10:25→21:33)
[2016-12-20] MEDS: traZODone HCL 100 MG TABLET (FP) PO SCH (21:33)
[2016-12-20] MEDS: THIAMINE HCL 100 MG TABLET (FP) PO SCH (21:34)
[2016-12-21] MEDS: IBUPROFEN 400 MG TABLET (FP) PO SCH ×2 (10:17→21:13)
[2016-12-21] MEDS: PRENATAL VITAMINS W/ FOLIC ACID TABLET (FP) PO SCH (10:18)
[2016-12-21] MEDS: RANITIDINE HCL 150 MG TABLET (FP) PO SCH ×2 (10:18→21:12)
[2016-12-21] MEDS: traZODone HCL 100 MG TABLET (FP) PO SCH (21:12)
[2016-12-21] MEDS: THIAMINE HCL 100 MG TABLET (FP) PO SCH (21:12)
[2016-12-21] MEDS: diphenhydrAMINE HCL 50 MG CAPSULE PO PRN (21:12)
[2016-12-22] MEDS: MAG HYDROX/AL HYDROX/SIMETH 30 ML UNIT-DOSE CUP PO PRN (03:25)
[2016-12-22] MEDS: PRENATAL VITAMINS W/ FOLIC ACID TABLET (FP) PO SCH (10:04)
[2016-12-22] MEDS: IBUPROFEN 400 MG TABLET (FP) PO SCH ×2 (10:04→21:23)
[2016-12-22] MEDS: RANITIDINE HCL 150 MG TABLET (FP) PO SCH ×2 (10:04→21:23)
--- NOTE | 2016-12-22 14:52 | PN ---
Psychiatric Progress Note Vital Signs: Vital Signs Period Temp Pulse Resp BP Sys/Capellan Pulse Ox Last 24 Hr 98.4 F 70 18-20 126/69 Date of Session: 12/22/16 Chief Complaint:: Discharge Note HPI: Patient addressing Alcohol, Cocaine and Cannabis Dependence comorbid with Nicotine Dependence, Depressive Disorder, Substance-Induced Anxiety Disorder and Substance-induced Sleep Disorder ROS: Fracture right big toe Current Medications: Active Medications Generic Name Dose Route Start Last Admin Trade Name Freq PRN Reason Stop Dose Admin Acetaminophen 650 mg 12/08/16 20:02 Tylenol - PO Q4H PRN FEVER OR PAIN Al Hydroxide/Mg Hydroxide 30 ml 12/08/16 20:02 12/22/16 03:25 Mylanta Oral Suspension - PO 30 ml Q6H PRN Administration DYSPEPSIA Diphenhydramine HCl 50 mg 12/08/16 20:02 12/21/16 21:12 Benadryl - PO 50 mg HSMR1 PRN Administration FOR ITCHING Eucalyptus/Menthol/Phenol/Sorbitol 1 each 12/08/16 20:02 Cepastat Lozenge - MM Q4H PRN SORE THROAT Guaifenesin 10 ml 12/08/16 20:02 Robitussin Dm - PO Q6H PRN COUGH Ibuprofen 800 mg 12/09/16 22:00 12/22/16 10:04 Motrin - PO 800 mg BID BERTHA Administration Loperamide HCl 4 mg 12/08/16 20:02 Imodium - PO Q6H PRN DIARRHEA Magnesium Hydroxide 30 ml 12/08/16 20:02 Milk Of Magnesia - PO DAILY PRN CONSTIPATION Nicotine 14 mg 12/08/16 20:02 12/09/16 10:06 Nicoderm Patch - TD 14 mg DAILY PRN Administration WITHDRAWAL(CONT SUBST) Nicotine Polacrilex 2 mg 12/08/16 20:02 Nicorette Gum - BUC Q2H PRN NICOTINE REPLACEMENT RX Multivit/Folic Acid/Iron 1 tab 12/09/16 10:00 12/22/16 10:04 Vitamins (Sjr) - PO 1 tab DAILY BERTHA Administration Pseudoephedrine/Triprolidine 1 combo 12/08/16 20:02 Actifed - PO TID PRN NASAL CONGESTION Ranitidine HCl 150 mg 12/08/16 22:00 06/19/17 10:04 Zantac - PO 150 mg BID BERTHA Administration Thiamine HCl 100 mg 12/08/16 22:00 12/21/16 21:12 Vitamin B1 - PO 100 mg HS BERTHA Administration Trazodone HCl 100 mg 12/10/16 22:00 12/21/16 21:12 Desyrel - PO 100 mg HS BERTHA Administration Current Side Effect: No Lab tests ordered: Yes Lab tests reviewed: Yes Provider note:: Patient will complete this program on 12/23/16. She has met her treatment goals and will continue to address her issues in outpatient treatment at [facility] at [address] [place] [address]. Told investment underwriter that from her participation in this program, she has learned the importance of going to outpatient treatment as well as AA/NA. She responded wel to Trazadone 100 mg po HS for insomnia. Script for that medication willbe electronically transmitted to [facility] at [address] [place] [address]. She is stable for discharge on 12/23/16 Total face to face time:: 35 Mental Status Exam - Mental Status Exam Alert and Oriented to: Time, Place, Person Cognitive Function: Fair Patient Appearance: Well Groomed Mood: Hopeful, Euthymic Affect: Appropriate Patient Behavior: Cooperative Speech Pattern: Clear Voice Loudness: Normal Thought Process: Intact, Goal Oriented Thought Disorder: Not Present Hallucinations: Denies Suicidal Ideation: Denies Homicidal Ideation: Denies Insight/Judgement: Fair Sleep: Fair Appetite: Good Muscle strength/Tone: Normal Gait/Station: Normal Psychiatric Treatment Plan - Problem List (1) Alcohol dependence with uncomplicated withdrawal Current Visit: No (2) Cocaine dependence, uncomplicated Current Visit: No (3) Cannabis dependence, uncomplicated Current Visit: No (4) Nicotine dependence Current Visit: Yes (5) Depressive disorder Current Visit: Yes (6) Substance-induced anxiety disorder Current Visit: Yes (7) Substance-induced sleep disorder Current Visit: Yes (8) Toe fracture, right Current Visit: No (9) GERD (gastroesophageal reflux disease) Current Visit: Yes (10) PPD positive, treated Current Visit: Yes Initial treatment plan: Patient will be discharged tomorrow and referred to [facility]
[2016-12-22] MEDS: diphenhydrAMINE HCL 50 MG CAPSULE PO PRN (21:22)
[2016-12-22] MEDS: traZODone HCL 100 MG TABLET (FP) PO SCH (21:22)
[2016-12-22] MEDS: THIAMINE HCL 100 MG TABLET (FP) PO SCH (21:22)
[2016-12-23] MEDS: MAG HYDROX/AL HYDROX/SIMETH 30 ML UNIT-DOSE CUP PO PRN (02:02)
[2016-12-23 06:42] VITALS: BP 136/86; PULSE 71; TEMP 98.3
[2016-12-23] MEDS: RANITIDINE HCL 150 MG TABLET (FP) PO SCH (09:18)
[2016-12-23] MEDS: PRENATAL VITAMINS W/ FOLIC ACID TABLET (FP) PO SCH (09:18)
[2016-12-23] MEDS: IBUPROFEN 400 MG TABLET (FP) PO SCH (09:18)
== END 2016-12-23 09:35 | disposition home or self-care (01) | DRG 772 ==
LOC: YASAS 18:01 → Y3W 18:02
PROVIDERS: ADMIT Psychiatry & Neurology Psychiatry; ATTEND Psychiatry & Neurology Psychiatry
PROC: HZ42ZZZ Group Counseling for Substance Abuse Treatment, Cognitive-Behavioral (ICD-10-PCS; principal; 2016-12-08)
DX: F10.20 Alcohol dependence, uncomplicated (principal); F14.20 Cocaine dependence, uncomplicated; F12.20 Cannabis dependence, uncomplicated; F17.210 Nicotine dependence, cigarettes, uncomplicated; F32.9 Major depressive disorder, single episode, unspecified; F19.280 Other psychoactive substance dependence with psychoactive substance-induced anxiety disorder; F19.282 Other psychoactive substance dependence with psychoactive substance-induced sleep disorder; K21.9 Gastro-esophageal reflux disease without esophagitis; R76.11 Nonspecific reaction to tuberculin skin test without active tuberculosis; S92.404D Nondisplaced unspecified fracture of right great toe, subsequent encounter for fracture with routine healing; X58.XXXD Exposure to other specified factors, subsequent encounter; Z87.42 Personal history of other diseases of the female genital tract
CPT/HCPCS: 36415; 87389